=== PATIENT | male | born 1955 | race Caucasian/White ===

== ENCOUNTER 2021-04-25 01:17 | Outpatient (CLI) | payer OTHER | END 2021-04-25 23:59 | disposition critical access hospital (66) | LOC: EMS 01:17 | DX: I46.9 Cardiac arrest, cause unspecified (principal) | CPT/HCPCS: A0425; A0427 ==

== ENCOUNTER 2021-04-25 01:39 | Emergency (ER) | payer OTHER ==
--- NOTE | 2021-04-25 01:53 | ED Physician Documentation ---
PD HPI CPR - Stated complaint Stated Complaint: ROSC - Chief complaint Chief Complaint: Critical Care - History obtained from History obtained from: Family (spouse (in ED)), EMS - History of Present Illness Timing - onset: Enter time (00:30), Today Timing - onset during: Sleep Preceding symptoms: None Recently seen: Not recently seen Witnessed: Arrest witnessed Fall: No fall Bystander CPR: Bystander CPR EMS findings: Unresponsive, Apneic, Agonal breathing, Pulseless, Asystole Treatment CONSULTING MARINE ENGINEER: CPR, Intubated, Epi, Sodium Bicarb, IO Advanced directive: Full code - Additional information Additional information: BIBA, arrives intubated. HPI from EMS and subsequently from patient's spouse. says they are visiting [facility]. Patient had been having nausea, headache for past 10 days but told earlier today that he felt back to his baseline. Went to bed at approximately 11 PM. says she had not fallen asleep when, at approximately 12:30 AM, she heard patient (who was lying in bed next to her) making snoring/choking noises. She looked over at him and found him to be pale, diaphoretic, and completely unresponsive; her description suggests agonal breathing. She called 911 and started CPR per instruction. Police arrived first and continued CPR and EMS then arrived, found patient to be pulseless, apneic, and in asystole. EMS estimates they arrived within 10 minutes of the 911 call and had ROSC within 10 minutes of their arrival. EMS placed right IO. They continued CPR and gave a total of 4mg epinephrine. Also given 1 amp sodium bicarbonate. They noted ROSC after the third dose of epinephrine, but gave a fourth dose when his pulse became weak/thready and he became hypotensive. On ED arrival he is intubated, not moving (has not received paralytics nor sedative agent), but with stable vital signs (mid-80s pulse ox noted). Patient is not covid vaccinated. No past medical history except high cholesterol. Review of Systems Unable to obtain: Intubated PD PAST MEDICAL HISTORY - Past Medical History Past Medical History: Yes Cardiovascular: High cholesterol - Present Medications Home Medications: Ambulatory Orders Medication Instructions Recorded Confirmed Ezetimibe [Zetia] 10 mg PO QD 04/25/21 04/25/21 - Allergies Allergies/Adverse Reactions: Allergies Allergy/AdvReac Type Severity Reaction Status Date / Time No Known Drug Allergies Allergy Verified 04/25/21 02:36 - Living Situation Living Situation: reports: With spouse/s.o. Living Arrangement: reports: At home PD ED PE NORMAL - Vitals Vital signs reviewed: Yes - Cardiac Cardiac: RRR, No murmur - Abdomen Abdomen: Soft, Non distended - Derm Derm: Normal color, Warm and dry - Extremities Extremities: No edema PD ED PE EXPANDED - General General: Unresponsive, Other (intubated (orotracheally)) - HEENT HEENT: Other (pupils are midsize, sluggishly reactive, equal) - Respiratory Respiratory: Other (intubated; course rales bilaterally) - GCS Eye Opening: None Motor: None Verbal: None Total: 3 Results - Vitals Vitals: Vital Signs - 24 hr 04/25/21 04/25/21 04/25/21 01:41 01:55 02:00 Temperature 36 C L Heart Rate 92 86 75 Respiratory 19 19 Rate Blood Pressure 97/54 L 118/78 O2 Saturation 84 L 95 04/25/21 04/25/21 04/25/21 02:04 02:15 02:32 Temperature 35.5 C L 35.5 C L Heart Rate 78 79 76 Respiratory 19 19 19 Rate Blood Pressure 146/94 H 146/92 H 134/91 H O2 Saturation 99 99 97 04/25/21 04/25/21 04/25/21 02:53 02:55 03:00 Temperature 35.4 C L 35.4 C L Heart Rate 71 71 72 Respiratory 17 19 22 Rate Blood Pressure 143/92 H 145/91 H 141/90 H O2 Saturation 94 93 94 04/25/21 04/25/21 04/25/21 03:16 03:20 03:26 Temperature 35.4 C L Heart Rate 69 65 64 Respiratory 21 15 Rate Blood Pressure 131/85 H 143/97 H O2 Saturation 88 L 96 Oxygen O2 Source Mechanical ventilator - EKG (time done) No standard instances Rate: Rate (enter#) (87) Rhythm: NSR [place]: LAD Intervals: Normal FL QRS: Normal Ischemia: Normal ST segments, Other (peaked T wave limited to V3) - Labs Labs: Laboratory Tests 04/25/21 04/25/21 04/25/21 01:53 01:53 01:53 WBC 15.6 H RBC 4.39 L Hgb 11.9 L Hct 39.2 L MCV 89.3 MCH 27.1 MCHC 30.4 L RDW 15.0 Plt Count 361 MPV 9.4 Neut # (Auto) Not Reportable Lymph # (Auto) Not Reportable [place] # (Auto) Not Reportable Eos # (Auto) Not Reportable Baso # (Auto) Not Reportable Absolute Nucleated RBC Not Reportable Total Counted 100 Band Neuts % (Manual) 3 Abnorm Lymph % (Manual) 0 Metamyelocytes % 1 H Myelocytes % 3 H Nucleated RBC % Not Reportable Neutrophils # (Manual) 9.2 H Lymphocytes # (Manual) 4.2 H Monocytes # (Manual) 1.4 H Eosinophils # (Manual) 0.0 Basophils # (Manual) 0.2 H Differential Comment MANUAL DIFFERENTIAL WBC Morphology NORMAL APPEARANCE Platelet Estimate NORMAL (130-450,000) Platelet Morphology NORMAL APPEARANCE RBC Morph Micro Appear NORMAL APPEARANCE PT 14.6 H INR 1.3 H APTT 32.1 Bld Gas Analysis Time Sample Site ABG pH ABG pCO2 ABG pO2 ABG HCO3 ABG Total CO2 ABG O2 Saturation ABG Base Excess Tucker Test Respiration Rate O2 Delivery Device Vent Mode FiO2 Tidal Volume PEEP Sodium 137 Potassium 4.1 Chloride 103 Carbon Dioxide 19 L Anion Gap 15.0 H BUN 20 Creatinine 1.4 H Estimated GFR (MDRD) 51 L Glucose 263 H Lactic Acid Calcium 8.1 L Total Bilirubin 0.4 AST 47 H ALT 63 H Alkaline Phosphatase 73 Troponin I High Sens B-Natriuretic Peptide Total Protein 6.6 L Albumin 2.9 L Globulin 3.7 Albumin/Globulin Ratio 0.8 L Lipase 31 Urine Color Urine Clarity Urine pH Ur Specific [place] Urine Protein Urine Glucose (UA) Urine Ketones Urine Occult Blood Urine Nitrite Urine Bilirubin Urine Urobilinogen Ur Leukocyte Esterase Urine RBC Urine WBC Ur Squamous Epith Cells Amorphous Sediment Urine Bacteria Urine Casts Ur Microscopic Review Urine Culture Comments Nasal Adenovirus (PCR) Nasal B. parapertussis DNA (PCR) Nasal Coronavir 229E PCR Nasal Coronavir HKU1 PCR Nasal Coronavir NL63 PCR Nasal Coronavir OC43 PCR Nasal Enterovir/Rhinovir PCR Nasal Influenza B PCR Nasal Influenza A PCR Nasal Parainfluen 1 PCR Nasal Parainfluen 2 PCR Nasal Parainfluen 3 PCR Nasal Parainfluen 4 PCR Nasal RSV (PCR) Nasal B.pertussis DNA PCR Nasal C.pneumoniae (PCR) [place] Human Metapneumo PCR Nasal M.pneumoniae (PCR) Nasal SARS-CoV-2 (PCR) Urine Opiates Screen Ur Oxycodone Screen Urine Methadone Screen Ur Propoxyphene Screen Ur Barbiturates Screen Ur Tricyclics Screen Ur Phencyclidine Scrn Ur Amphetamine Screen U Methamphetamines Scrn U Benzodiazepines Scrn Urine Cocaine Screen U Cannabinoids Screen 04/25/21 04/25/21 04/25/21 01:53 01:53 01:53 WBC RBC Hgb Hct MCV MCH MCHC RDW Plt Count MPV Neut # (Auto) Lymph # (Auto) [place] # (Auto) Eos # (Auto) Baso # (Auto) Absolute Nucleated RBC Total Counted Band Neuts % (Manual) Abnorm Lymph % (Manual) Metamyelocytes % Myelocytes % Nucleated RBC % Neutrophils # (Manual) Lymphocytes # (Manual) Monocytes # (Manual) Eosinophils # (Manual) Basophils # (Manual) Differential Comment WBC Morphology Platelet Estimate Platelet Morphology RBC Morph Micro Appear PT INR APTT Bld Gas Analysis Time Sample Site ABG pH ABG pCO2 ABG pO2 ABG HCO3 ABG Total CO2 ABG O2 Saturation ABG Base Excess Tucker Test Respiration Rate O2 Delivery Device Vent Mode FiO2 Tidal Volume PEEP Sodium Potassium Chloride Carbon Dioxide Anion Gap BUN Creatinine Estimated GFR (MDRD) Glucose Lactic Acid 7.9 H* Calcium Total Bilirubin AST ALT Alkaline Phosphatase Troponin I High Sens 35.1 H* B-Natriuretic Peptide 220 H Total Protein Albumin Globulin Albumin/Globulin Ratio Lipase Urine Color Urine Clarity Urine pH Ur Specific [place] Urine Protein Urine Glucose (UA) Urine Ketones Urine Occult Blood Urine Nitrite Urine Bilirubin Urine Urobilinogen Ur Leukocyte Esterase Urine RBC Urine WBC Ur Squamous Epith Cells Amorphous Sediment Urine Bacteria Urine Casts Ur Microscopic Review Urine Culture Comments Nasal Adenovirus (PCR) Nasal B. parapertussis DNA (PCR) Nasal Coronavir 229E PCR Nasal Coronavir HKU1 PCR Nasal Coronavir NL63 PCR Nasal Coronavir OC43 PCR Nasal Enterovir/Rhinovir PCR Nasal Influenza B PCR Nasal Influenza A PCR Nasal Parainfluen 1 PCR Nasal Parainfluen 2 PCR Nasal Parainfluen 3 PCR Nasal Parainfluen 4 PCR Nasal RSV (PCR) Nasal B.pertussis DNA PCR Nasal C.pneumoniae (PCR) [place] Human Metapneumo PCR Nasal M.pneumoniae (PCR) Nasal SARS-CoV-2 (PCR) Urine Opiates Screen Ur Oxycodone Screen Urine Methadone Screen Ur Propoxyphene Screen Ur Barbiturates Screen Ur Tricyclics Screen Ur Phencyclidine Scrn Ur Amphetamine Screen U Methamphetamines Scrn U Benzodiazepines Scrn Urine Cocaine Screen U Cannabinoids Screen 04/25/21 04/25/21 04/25/21 01:57 01:57 02:21 WBC RBC Hgb Hct MCV MCH MCHC RDW Plt Count MPV Neut # (Auto) Lymph # (Auto) [place] # (Auto) Eos # (Auto) Baso # (Auto) Absolute Nucleated RBC Total Counted Band Neuts % (Manual) Abnorm Lymph % (Manual) Metamyelocytes % Myelocytes % Nucleated RBC % Neutrophils # (Manual) Lymphocytes # (Manual) Monocytes # (Manual) Eosinophils # (Manual) Basophils # (Manual) Differential Comment WBC Morphology Platelet Estimate Platelet Morphology RBC Morph Micro Appear PT INR APTT Bld Gas Analysis Time 0226 Sample Site LEFT RADIAL ABG pH 7.25 L ABG pCO2 42 ABG pO2 343 H* ABG HCO3 18.3 L ABG Total CO2 19.6 L ABG O2 Saturation 99 H ABG Base Excess -8.4 L Tucker Test POSITIVE Respiration Rate 18 O2 Delivery Device VENTILATOR Vent Mode ASSIST/CONTROL FiO2 100.00 Tidal Volume 550 PEEP 5 Sodium Potassium Chloride Carbon Dioxide Anion Gap BUN Creatinine Estimated GFR (MDRD) Glucose Lactic Acid Calcium Total Bilirubin AST ALT Alkaline Phosphatase Troponin I High Sens B-Natriuretic Peptide Total Protein Albumin Globulin Albumin/Globulin Ratio Lipase Urine Color YELLOW Urine Clarity CLEAR Urine pH 6.0 Ur Specific [place] >=1.030 H Urine Protein >=300 H Urine Glucose (UA) NEGATIVE Urine Ketones NEGATIVE Urine Occult Blood SMALL H Urine Nitrite NEGATIVE Urine Bilirubin NEGATIVE Urine Urobilinogen 0.2 (NORMAL) Ur Leukocyte Esterase NEGATIVE Urine RBC 11-25 H Urine WBC 0-3 Ur Squamous Epith Cells FEW Squamous Amorphous Sediment Moderate Urine Bacteria Few Urine Casts 0-2 Hyaline Casts Ur Microscopic Review INDICATED Urine Culture Comments NOT INDICATED Nasal Adenovirus (PCR) NOT DETECTED Nasal B. parapertussis DNA (PCR) NOT DETECTED Nasal Coronavir 229E PCR NOT DETECTED Nasal Coronavir HKU1 PCR NOT DETECTED Nasal Coronavir NL63 PCR NOT DETECTED Nasal Coronavir OC43 PCR NOT DETECTED Nasal Enterovir/Rhinovir PCR NOT DETECTED Nasal Influenza B PCR NOT DETECTED Nasal Influenza A PCR NOT DETECTED Nasal Parainfluen 1 PCR NOT DETECTED Nasal Parainfluen 2 PCR NOT DETECTED Nasal Parainfluen 3 PCR NOT DETECTED Nasal Parainfluen 4 PCR NOT DETECTED Nasal RSV (PCR) NOT DETECTED Nasal B.pertussis DNA PCR NOT DETECTED Nasal C.pneumoniae (PCR) NOT DETECTED [place] Human Metapneumo PCR NOT DETECTED Nasal M.pneumoniae (PCR) NOT DETECTED Nasal SARS-CoV-2 (PCR) NOT DETECTED Urine Opiates Screen NEGATIVE Ur Oxycodone Screen NEGATIVE Urine Methadone Screen NEGATIVE Ur Propoxyphene Screen NEGATIVE Ur Barbiturates Screen NEGATIVE Ur Tricyclics Screen NEGATIVE Ur Phencyclidine Scrn NEGATIVE Ur Amphetamine Screen NEGATIVE U Methamphetamines Scrn NEGATIVE U Benzodiazepines Scrn NEGATIVE Urine Cocaine Screen NEGATIVE U Cannabinoids Screen NEGATIVE - Rads (name of study) chest xray Radiology: Prelim report reviewed, See rad report PD MEDICAL DECISION MAKING - ED course Complexity details: reviewed results, re-evaluated patient, considered differential, d/w family ED course: D/W Dr. Pedraza, [facility] at [place]. He recommends initiate hypothermia protocol and accepts transfer to [place]. [facility] both decline transfer due to weather. He is subsequently transferred by ground with [facility] crew accompanying on ambulance - Critical Care Time(min): 45 Time Includes: Direct patient care, Reassess patient, Document care, Coordinate care, See progress note Data interpretation: Pulse ox, ABG, CXR, See progress note Procedures included in critical care time: See progress note Procedures excluded from critical care time: Intraosseous, See progress note Departure - Departure Disposition: 02 Transfer Acute Care Hosp Clinical Impression: Cardiopulmonary arrest with successful resuscitation Condition: Critical Discharge Date/Time: 04/25/21 04:07
[2021-04-25 02:02] LABS: MUDS CUTOFF CONCENTRATIONS CUTOFF CONC BELOW:
[2021-04-25 02:03] LABS: BASOPHILS % (AUTO) 0.4 %; EOSINOPHILS % (AUTO) 2.1 %; HCT - HEMATOCRIT 39.2 % (42.0-52.0); HGB - HEMOGLOBIN 11.9 g/dL (14.0-18.0); LYMPHOCYTES % (AUTO) 19.6 %; MEAN CORPUSCULAR HEMOGLOBIN 27.1 pg (27.0-31.0); MEAN CORPUSCULAR HGB CONC 30.4 g/dL (32.0-36.0); MEAN CORPUSCULAR VOLUME 89.3 fL (80.0-94.0); MEAN PLATELET VOLUME 9.4 fL (7.4-11.4); MONOCYTES % (AUTO) 5.7 %; NEUTROPHILS % (AUTO) 66.2 %; PLT - PLATELET COUNT 361 10^3/uL (130-450); RED BLOOD COUNT 4.39 10^6/uL (4.70-6.10); WHITE BLOOD COUNT 15.6 x10^3/uL (4.8-10.8)
[2021-04-25 02:07] LABS: BILIRUBIN,URINE NEGATIVE (NEGATIVE); GLUCOSE, URINE (UA) NEGATIVE (NEGATIVE); KETONES,URINE (UA) NEGATIVE (NEGATIVE); LEUKOCYTE ESTERASE, URINE NEGATIVE (NEGATIVE); NITRITE,URINE NEGATIVE (NEGATIVE); OCCULT BLOOD,URINE SMALL (NEGATIVE); PROTEIN,URINE >=300 mg/dL (NEGATIVE); UROBILINOGEN,URINE 0.2 (NORMAL) E.U./dL (NORMAL)
[2021-04-25 02:07] LABS: ABNORMAL LYMPHS % (MANUAL) 0 %
[2021-04-25] MEDS ORDERED: PROPOFOL 500 MG/50 ML 500 MG/50 ML VIAL IV STA (02:07)
[2021-04-25] MEDS ORDERED: PROPOFOL 200 MG/20 ML VIAL IVP STA (02:07)
[2021-04-25] MEDS ORDERED: PROPOFOL 500 MG/50 ML 500 MG/50 ML VIAL ONE ×2 (02:09→04:02)
[2021-04-25 02:10] LABS: INR 1.3 (0.8-1.2); PT - PROTHROMBIN TIME 14.6 secs (9.9-12.6)
[2021-04-25 02:10] LABS: CLARITY,URINE CLEAR (CLEAR)
[2021-04-25 02:15] LABS: ALBUMIN 2.9 g/dL (3.2-5.5); ALBUMIN/GLOBULIN RATIO 0.8 (1.0-2.2); BILIRUBIN,TOTAL 0.4 mg/dL (0.2-1.0); CALCIUM 8.1 mg/dL (8.5-10.3); CREATININE 1.4 mg/dL (0.6-1.2); POTASSIUM 4.1 mmol/L (3.5-5.0); TOTAL PROTEIN 6.6 g/dL (6.7-8.2)
[2021-04-25 02:17] LABS: PARTIAL THROMBOPLASTIN TIME 32.1 secs (24.9-33.3)
[2021-04-25 02:19] LABS: WBC,URINE 0-3 /HPF (0-3)
[2021-04-25 02:20] LABS: AMORPHOUS SEDIMENT,UR Moderate /LPF; AMPHETAMINE SCREEN,URINE NEGATIVE (NEGATIVE); BACTERIA,URINE Few /HPF (None Seen); BARBITURATE SCREEN,UR NEGATIVE (NEGATIVE); BENZODIAZEPINES SCREEN, URINE NEGATIVE (NEGATIVE); CASTS, URINE 0-2 Hyaline Casts /LPF; COCAINE SCREEN URINE NEGATIVE (NEGATIVE); METHADONE SCREEN, URINE NEGATIVE (NEGATIVE); METHAMPHETAMINES SCREEN, URINE NEGATIVE (NEGATIVE); OPIATE SCREEN, URINE NEGATIVE (NEGATIVE); OXYCODONE SCREEN, URINE NEGATIVE (NEGATIVE); PROPOXYPHENE SCREEN, URINE NEGATIVE (NEGATIVE); SQUAMOUS EPITHELIAL CELL,UR FEW Squamous (<= Few); THC CANNABINOID SCREEN, URINE NEGATIVE (NEGATIVE); TRICYCLIC ANTIDEPRESSANT,URINE NEGATIVE (NEGATIVE)
[2021-04-25 02:27] LABS: ABG BASE EXCESS -8.4 mmol/L (-2.0-3.0); ABG HCO3 18.3 mmol/L (22.0-26.0); ABG OXYGEN SATURATION 99 % (94-98); ABG PCO2 42 mmHg (34-45); ABG PH 7.25 (7.35-7.45); ABG TCO2 19.6 MMOL/L (21.0-29.0); ALLEN TEST POSITIVE
[2021-04-25 02:27] LABS: BAND NEUTROPHILS % (MANUAL) 3 %; BASOPHILS # (MANUAL) 0.2 10^3/uL (0-0.1); BASOPHILS % (MANUAL) 1 %; DIFFERENTIAL COMMENT MANUAL DIFFERENTIAL; LYMPHOCYTES # (MANUAL) 4.2 10^3/uL (1.5-3.5); LYMPHOCYTES % (MANUAL) 27 %; METAMYELOCYTES % (MANUAL) 1 %; MONOCYTES # (MANUAL) 1.4 10^3/uL (0.0-1.0); MYELOCYTES % (MANUAL) 3 %; NEUTROPHILS # (MANUAL) 9.2 10^3/uL (1.5-6.6); PLATELET ESTIMATE, MANUAL NORMAL (130-450,000) (NORMAL); PLATELET MORPHOLOGY NORMAL APPEARANCE (NORMAL); RBC MORPHOLOGY (MULTIPLE) NORMAL APPEARANCE (NORMAL); WBC MORPHOLOGY (MULTIPLE) NORMAL APPEARANCE (NORMAL)
[2021-04-25 02:28] LABS: ABG MODE OF VENTILATION ASSIST/CONTROL; ABG RESPIRATORY RATE 18 b/min
[2021-04-25 02:30] LABS: ABG PO2 343 mmHg (80-100)
[2021-04-25 02:51] LABS: B. PARAPERTUSSIS- RESP PCR PAN NOT DETECTED; B. PERTUSSIS- RESP PCR PANEL NOT DETECTED; C. PNEUMONIAE- RESP PCR PANEL NOT DETECTED; CORONAVIRUS 229E-RESP PCR NOT DETECTED; CORONAVIRUS HKU1-RESP PCR NOT DETECTED; CORONAVIRUS NL63-RESP PCR NOT DETECTED; CORONAVIRUS OC43-RESP PCR NOT DETECTED; HUMAN METAPNEUMOVIRUS NOT DETECTED; INFLUENZA A- RESP PCR PANEL NOT DETECTED; INFLUENZA B - RESP PCR PANEL NOT DETECTED; M. PNEUMONIAE- RESP PCR PANEL NOT DETECTED; PARAINFLUENZA VIRUS 1 NOT DETECTED; PARAINFLUENZA VIRUS 2 NOT DETECTED; PARAINFLUENZA VIRUS 3 NOT DETECTED; PARAINFLUENZA VIRUS 4 NOT DETECTED; RHINOVIRUS/ENTEROVIRUS NOT DETECTED; RSV- RESP PCR PANEL NOT DETECTED; SARS-CoV-2 -RESP PCR PANEL NOT DETECTED
[2021-04-25 03:29] VITALS: BP 143/97
--- NOTE | 2021-04-25 12:31 | XRAY Report ---
PROCEDURE: Chest 1 View X-Ray INDICATIONS: ROSC, intubated TECHNIQUE: One view of the chest was acquired. COMPARISON: None FINDINGS: Surgical changes and devices: Endotracheal tube is present approximately 5.6 cm superior to the suzy a.. Lungs and pleura: Diffuse appearance of bilateral pulmonary opacities are present. Mediastinum: Mediastinal contours appear normal. Heart size is normal. Bones and chest wall: No suspicious bony lesions. Overlying soft tissues appear unremarkable. IMPRESSION: Diffuse bilateral pulmonary opacities which may represent infection/inflammation and/or edema. Endotracheal tube as above. Reviewed by: Renetta Blackburn MD on 04/25/2021 12:30 PM PDT Approved by: Renetta Blackburn MD on 04/25/2021 12:30 PM PDT Station ID: [id number]
== END 2021-04-25 04:07 | disposition short-term general hospital (02) ==
LOC: ED 01:39
DX: I46.9 Cardiac arrest, cause unspecified (principal); Z20.822 Contact with and (suspected) exposure to COVID-19
CPT/HCPCS: 0202U; 36415; 36600; 43753; 51702; 71045; 80053; 80306; 81001; 82803; 83605; 83690; 83880; 84484; 85025; 85610; 85730; 93005; 96365; 96376; 99291; 81003; 87086

== ENCOUNTER 2021-04-25 04:08 | Outpatient (CLI) | payer OTHER | END 2021-04-25 04:09 | disposition short-term general hospital (02) | LOC: EMS 04:08 | PROVIDERS: ATTEND Emergency Medicine | DX: Z76.89 Persons encountering health services in other specified circumstances (principal) | CPT/HCPCS: A0425; A0426 ==